=== PATIENT | male | born 1955 | race Caucasian/White ===

== ENCOUNTER 2016-07-09 00:23 | Emergency (ER) | payer MEDICAID ==
[2014-06-23 10:45] VITALS: BMI 21.5
[~2016-07-09 00:23] MED LIST: ELAVIL10 MG; ELAVIL75 MG PO; NORCO 7.5/325 T1 TA1 PO; PRILOSEC20 MG PO; ROBAXIN500 MG; TENORMIN25 MG PO; VALIUM 2 MG TAB2 MG PO; VOLTAREN75 MG PO; WELLBUTRIN75 MG PO
== END 2016-07-09 02:47 | disposition home or self-care (01) ==
LOC: D.ER 00:23
DX: R07.9 Chest pain, unspecified (principal); W01.0XXA Fall on same level from slipping, tripping and stumbling without subsequent striking against object, initial encounter; Y93.89 Activity, other specified; Y92.019 Unspecified place in single-family (private) house as the place of occurrence of the external cause; I10 Essential (primary) hypertension

== ENCOUNTER 2016-12-13 10:44 | Emergency (ER) | payer MEDICARE ==
[2014-06-23 10:45] VITALS: BMI 21.5
== END 2016-12-13 11:52 | disposition home or self-care (01) ==
LOC: D.ER 10:44
DX: S80.861A Insect bite (nonvenomous), right lower leg, initial encounter (principal); W57.XXXA Bitten or stung by nonvenomous insect and other nonvenomous arthropods, initial encounter; Y93.89 Activity, other specified; Y92.89 Other specified places as the place of occurrence of the external cause; I10 Essential (primary) hypertension

== ENCOUNTER 2017-06-01 10:14 | Emergency (ER) | payer MEDICARE | END 2017-06-01 14:41 | disposition home or self-care (01) | LOC: D.ER 10:14 | DX: L03.115 Cellulitis of right lower limb (principal); I10 Essential (primary) hypertension; F17.200 Nicotine dependence, unspecified, uncomplicated ==